=== PATIENT | male | born 1950 ===

== ENCOUNTER 2019-07-06 18:00 | Observation (INO) ==
[2019-07-06] MEDS ORDERED: ASPIRIN 325 MG TABLET PO STA (19:05)
[2019-07-06] MEDS ORDERED: ONDANSETRON 4 MG/2 ML VIAL IV STA (19:05)
[2019-07-06 19:12] LABS: Basophils % 0.4 % (0.0-0.8); Eosinophils # 0.1 10*3/uL (0.0-0.87); Eosinophils % 2.6 % (0.00-10.9); Hematocrit 41.3 VOL% (42.0-52.0); Hemoglobin 13.6 GM/DL (14.0-18.0); Immature Granulocytes % 0.9 %; Immature Granulocytes Absolute 0.04 #; Lymphocytes # 1.5 10*3/uL (1.4-4.0); Lymphocytes % 32.9 % (21.2-54.2); Mean Corpuscular HGB Conc 32.9 GM/DL (32-36); Mean Corpuscular Volume 95.4 FL (87-102); Mean Platelet Volume 9.5 FL (9.6-12.0); Monocytes % 10.3 % (1.7-12.7); Neutrophils % 52.9 % (38.7-73.9); Platelet Count 193 T/CUMM (130-400); Red Blood Count 4.33 MC/CUMM (3.8-5.5); White Blood Count 4.7 T/CUMM (4-12)
[2019-07-06 19:19] LABS: Apearance,Urine CLEAR (Clear); Bilirubin,Urine Negative (Negative); Blood, Urine Small mg/dL (Negative); Glucose,Urine (UA) >=500 mg/dL (Negative); Hyaline Casts,Urine 1 /LPF (0-3); INR 0.9; Ketones,Urine Negative (Negative); Mucus,Urine Occasional /LPF (Occasional); Nitrite,Urine Negative (Negative); PT Patient Result 10.3 SECS (9.6-12.2); Partial Thromboplastin Time 25.1 SECS (20.8-36.0); Protein,Urine 30 MG/DL; RBC,Urine 1 /HPF (0-4); Urine Color Yellow (Yellow); Urine Specific Gravity 1.012 (1.001-1.035); Urine Urobilinogen < 2.0 EU/DL (0.2-1.0); WBC,Urine <1 /HPF (0-6)
[2019-07-06 19:23] LABS: Barbiturates Screen,Urine Negative (Negative); Benzodiazepines Screen,Urine Negative (Negative); Cannabinoid Screen,Urine Negative (Negative); Opiate Screen,Urine Negative (Negative); Phencyclidine Screen,Urine Negative (Negative)
[2019-07-06 19:32] LABS: Alanine Aminotransferase 22 U/L (16-61); Albumin 3.9 G/DL (3.4-5.0); Alkaline Phosphatase 143 U/L (45-117); Aspartate Amino Transferase 38 U/L (0-37); Blood Urea Nitrogen 18 MG/DL (7-18); Calcium 8.4 MG/DL (8.5-10.1); Glucose 91 MG/DL (74-106); Osmolality,Calculated 287.8 MOS/KG (273-304); Total Protein 7.4 G/DL (6.4-8.3)
[2019-07-06] MEDS ORDERED: hydrALAZINE 20 MG/1 ML VIAL ONE (20:12)
[2019-07-06] MEDS ORDERED: hydrALAZINE 20 MG/1 ML VIAL IV STA (20:16)
[2019-07-06] MEDS ORDERED: LABETALOL 20 MG/4 ML SYRINGE IV PRN (21:42)
[2019-07-06] MEDS ORDERED: LORazepam 1 MG TABLET PO PRN (21:42)
[2019-07-06] MEDS ORDERED: DEXTROSE 50% 25 GM/50 ML VIAL IV PRN ×2 (21:42→21:49)
[2019-07-06] MEDS ORDERED: GLUCAGON 1 MG VIAL IM PRN ×2 (21:42→21:49)
[2019-07-06 22:26] LABS: Risk Ratio 3.83; VLDL CHOLESTEROL 21.2 MG/DL
[2019-07-06] MEDS ORDERED: PNEUMOCOCCAL VACCINE (13 VALENT) 0.5 ML SYRINGE IM ONE (22:45)
[2019-07-07] MEDS: ENOXAPARIN 40 MG/0.4 ML SYRINGE SUBCUT SCH ×2 (02:02→21:09)
[2019-07-07] MEDS: INSULIN REGULAR 100 UNIT/ML SUBCUT SCH ×4 (11:06→21:09)
[2019-07-07] MEDS: FOLIC ACID 1 MG TABLET PO SCH (11:13)
[2019-07-07] MEDS: THIAMINE 100 MG TABLET PO SCH (11:13)
[2019-07-07] MEDS: ASPIRIN 325 MG TABLET PO SCH (11:13)
[2019-07-08] MEDS: INSULIN REGULAR 100 UNIT/ML SUBCUT SCH ×4 (08:18→20:51)
[2019-07-08] MEDS: FOLIC ACID 1 MG TABLET PO SCH (09:24)
[2019-07-08] MEDS: THIAMINE 100 MG TABLET PO SCH (09:24)
[2019-07-08] MEDS: ASPIRIN 325 MG TABLET PO SCH (09:24)
[2019-07-08] MEDS: ENOXAPARIN 40 MG/0.4 ML SYRINGE SUBCUT SCH (20:50)
[2019-07-09] MEDS: INSULIN REGULAR 100 UNIT/ML SUBCUT SCH ×2 (09:23→12:15)
[2019-07-09] MEDS: THIAMINE 100 MG TABLET PO SCH (09:26)
[2019-07-09] MEDS: FOLIC ACID 1 MG TABLET PO SCH (09:26)
[2019-07-09] MEDS: ASPIRIN 325 MG TABLET PO SCH (09:26)
[2019-07-09] MEDS ORDERED: TUBERCULIN SKIN TEST 0.1 ML SYRINGE INTRADERM ONE (11:24)
[2019-07-09 12:01] VITALS: BP 163/94
== END 2019-07-09 12:46 | disposition swing bed (61) ==
LOC: EDBD → EDUNIT# → N.EDINP 18:00 → N.ED 18:00 → N.2E 20:27
PROVIDERS: ADMIT Hospitalist; ATTEND Hospitalist